=== PATIENT | male | born 1985 | race Caucasian/White ===

== ENCOUNTER 2025-08-04 07:03 | Emergency (ER) | payer OTHER ==
[2025-08-04] MEDS ORDERED: Sodium Chloride 0.9% 10 ML Syringe FLUSH PRN (07:30)
[2025-08-04] MEDS: Ondansetron 4 MG/2 ML SDV IVPUSH ONE (07:54)
[2025-08-04 07:55] LABS: BASOPHILS ABSOLUTE AUTO 0.05 K/uL (0.02-0.10); BASOPHILS PERCENT AUTO 0.8 % (0.0-0.5); EOSINOPHILS ABSOLUTE AUTO 0.09 K/uL (0.04-0.40); EOSINOPHILS PERCENT AUTO 1.5 % (1.0-5.0); LYMPHOCYTES ABSOLUTE AUTO 2.40 K/uL (1.50-4.00); LYMPHOCYTES PERCENT AUTO 40.5 % (20.0-40.0); MEAN PLATELET VOLUME 9.4 fL (6.0-10.0); MONOCYTES ABSOLUTE AUTO 0.36 K/uL (0.20-0.80); MONOCYTES PERCENT AUTO 6.1 % (3.0-10.0); NEUTROPHILS ABSOLUTE AUTO 3.03 K/uL (2.00-7.50); NEUTROPHILS PERCENT AUTO 51.1 % (45.0-70.0); PLATELET COUNT,PLT 337 K/uL (150-400); RED BLOOD CELL COUNT 4.68 M/uL (4.50-6.50); RED CELL DISTRIBUTION WIDTH 14.0 % (11.0-16.0); WHITE BLOOD CELL COUNT,WBC 5.9 K/uL (4.0-11.0)
[2025-08-04 08:13] LABS: A/G RATIO 1.2 (0.8-2.0); ALANINE AMINOTRANSFERASE,ALT 93.0 U/L (12-78); ASPARTATE AMNIOTRANSFERASE,AST 94.0 U/L (15-37); BILIRUBIN TOTAL 0.8 mg/dL (0.0-1.0); BLOOD UREA NITROGEN,BUN 15.0 mg/dL (8-26); CARBON DIOXIDE,CO2 25.9 mmol/L (21.0-32.0); CHLORIDE,CL 103.0 mmol/L (98-107); GLUCOSE RANDOM 117.0 mg/dL (74-100); POTASSIUM,K 3.9 mmol/L (3.5-5.1); SODIUM,NA 138.0 mmol/L (136-145)
[2025-08-04 08:39] LABS: PROTEIN TOTAL,TP 7.5 g/dL (6.4-8.2)
[2025-08-04] MEDS ORDERED: Ondansetron 4 MG Tab.DIS ONE (09:00)
[2025-08-04 09:12] LABS: APPEARANCE,URINE CLEAR (CLEAR); GLUCOSE,URINE NEGATIVE (NEGATIVE); OCCULT BLOOD,URINE NEGATIVE (NEGATIVE)
[2025-08-04 09:45] LABS: CREATININE 1.28 mg/dL (0.70-1.30); EST CRCL DRUG DOSING (CG) 75.7 mL/min; ESTIMATED GFR 73.0 mL/min (>60)
[2025-08-04 09:56] LABS: EPITHELIAL CELLS,URINE RARE /HPF
== END 2025-08-04 09:26 | disposition home or self-care (01) ==
LOC: LB.ED 07:03
DX: K27.9 Peptic ulcer, site unspecified, unspecified as acute or chronic, without hemorrhage or perforation (principal); R11.2 Nausea with vomiting, unspecified; E86.0 Dehydration; F17.200 Nicotine dependence, unspecified, uncomplicated; Z79.899 Other long term (current) drug therapy
CPT/HCPCS: 36415; 80053; 81001; 83690; 85025; 96365; 96375; 99284; J2405; J2470; J7030; Q0162